=== PATIENT | male | born 1970 | race Caucasian/White ===

== ENCOUNTER 2019-05-07 22:53 | Emergency (ER) | payer BC ==
[~2019-05-07] VITALS: Ht 180.3 cm; Wt 100.0 kg
[2019-05-07 22:56] VITALS: BP 155/102
== END 2019-05-07 23:18 | disposition home or self-care (01) ==
LOC: ER 22:54
DX: Z04.1 Encounter for examination and observation following transport accident (principal); E78.00 Pure hypercholesterolemia, unspecified; K21.9 Gastro-esophageal reflux disease without esophagitis; F17.200 Nicotine dependence, unspecified, uncomplicated; V49.88XA Car occupant (driver) (passenger) injured in other specified transport accidents, initial encounter; Y93.89 Activity, other specified; Y92.413 State road as the place of occurrence of the external cause; Y99.9 Unspecified external cause status
CPT/HCPCS: 99283

== ENCOUNTER 2022-11-11 09:57 | Day surgery (SDC) | payer MEDICAID ==
[2022-11-05 15:22] LABS: BASOPHILS # (AUTO) 0.1 X10'3 (0-0.2); BASOPHILS % (AUTO) 1.1 % (0-1); EOSINOPHILS % (AUTO) 0.6 % (0-6); HEMATOCRIT 41.3 % (42.0-52.0); HEMOGLOBIN 13.9 g/dl (14.0-17.9); LYMPHOCYTES # (AUTO) 1.7 X10'3 (1.1-4.8); LYMPHOCYTES % (AUTO) 27.9 % (21-51); MEAN CORPUSCULAR HEMOGLOBIN 30.4 PG (27.0-31.0); MEAN CORPUSCULAR HGB CONC 33.6 g/dL (33.0-36.5); MEAN CORPUSCULAR VOLUME 90.4 FL (78-98); MEAN PLATELET VOLUME 7.3 FL (7.4-10.4); MONOCYTES # (AUTO) 0.5 X10'3 (0-0.9); MONOCYTES % (AUTO) 8.2 % (2-12); NEUTROPHILS # (AUTO) 3.7 X10'3 (1.8-7.7); NEUTROPHILS % (AUTO) 62.2 % (42-75); PLATELET COUNT 290 X10'3 (140-440); RED BLOOD COUNT 4.57 X10'6 (4.70-6.10); RED CELL DISTRIBUTION WIDTH 13.5 % (11.5-14.5)
[2022-11-05 15:39] LABS: ALANINE AMINOTRANSFERASE 27 U/L (12-78); ALBUMIN 4.1 G/DL (3.4-5.0); ALBUMIN/GLOBULIN RATIO 1.3 (1.1-1.5); ALKALINE PHOSPHATASE 43 IU/L (46-116); ANION GAP 11 (8-16); ASPARTATE AMINO TRANSFERASE 24 U/L (10-37); BILIRUBIN,TOTAL 0.5 MG/DL (0.1-1.0); BLOOD UREA NITROGEN 17 MG/DL (7-18); BUN/CREATININE RATIO 14.5 (10.0-20.0); CALCIUM 8.8 MG/DL (8.5-10.1); CHLORIDE 105 MMOL/L (99-107); CREATININE 1.17 MG/DL (0.60-1.10); GLUCOSE 100 MG/DL (70-104); POTASSIUM 4.1 MMOL/L (3.5-5.1); SODIUM 139 MMOL/L (135-145); TOTAL CARBON DIOXIDE 22.7 MMOL/L (24-32); TOTAL PROTEIN 7.2 G/DL (6.4-8.2); eGFR 65 ML/MIN
[~2022-11-11] VITALS: Ht 180.3 cm; Wt 96.5 kg
[2022-11-11] VITALS (12 sets, daily range): BP systolic 125–151; BP diastolic 79–105
[~2022-11-11 09:57] MED LIST: NO HOME MEDS; cefazolin 2gm/D5W 100mL 100 ML IV ONE; famotidine 20mg tablet PO ONE; ringers solution, lacted 1,000 ML IV SCH
[2022-11-11] MEDS ORDERED: LIDOcaine 1% 30ml preserv. free vial ONE (12:39)
[2022-11-11] MEDS ORDERED: BUPIVAcaine/PF 2.5 mg/ml (0.25%) 30ml vial ONE (12:40)
[2022-11-11] MEDS ORDERED: hydrALAZINE 20mg/ml inj. IV PRN (12:45)
[2022-11-11] MEDS ORDERED: labetalol 20mg/4ml (5mg/ml) syringe IV PRN (12:45)
[2022-11-11] MEDS ORDERED: ondansetron/PF 4mg/2ml inj IV PRN (12:45)
[2022-11-11] MEDS ORDERED: proCHLORperazine 10 MG/2 ml inj IV PRN (12:45)
[2022-11-11] MEDS ORDERED: meperidine/PF 25mg/ml syringe IV PRN ×3 (12:45)
[2022-11-11] MEDS ORDERED: morphine 4 MG/ML inj SYRINge IV PRN (12:45)
[2022-11-11] MEDS ORDERED: ringers solution, lacted 1,000 ML IV SCH (12:45)
[2022-11-11] MEDS ORDERED: morphine 2 MG/ML inj. syringe IV PRN (12:45)
[2022-11-11] MEDS ORDERED: acetaminophen 1,000mg/100ml IV 100 ML IV PRN (12:45)
[2022-11-11] MEDS ORDERED: ketorolac trometh. 30mg/ml inj. IV ONE (12:45)
[2022-11-11] MEDS ORDERED: sevoflurane 250ml liquid IH ONE (13:02)
[2022-11-11] MEDS ORDERED: midazolam 1 mg/ML 2ml injection ONE (13:06)
[2022-11-11] MEDS ORDERED: fentaNYL /PF 50mcg/ml 5ml ampule ONE (13:06)
[2022-11-11] MEDS ORDERED: dexamethasone sod phosphate 4mg/ml inj. ONE (13:20)
[2022-11-11] MEDS ORDERED: propofol inj 20 ML IV ONE (13:20)
[2022-11-11] MEDS ORDERED: rocuronium 10mg/ml inj IV ONE (13:20)
[2022-11-11] MEDS ORDERED: ondansetron/PF 4mg/2ml inj ONE (13:20)
[2022-11-11] MEDS ORDERED: LIDOcaine 2% (20mg/ml) 5ml vial ONE (13:20)
[2022-11-11] MEDS ORDERED: morphine 4 MG/ML inj SYRINge ONE (14:09)
[2022-11-11] MEDS ORDERED: neostigmine methylsulfate 1 MG/ML 10ml vial ONE (14:13)
[2022-11-11] MEDS ORDERED: glycopyrrolate 0.2mg/ml inj ONE (14:13)
--- NOTE | 2022-11-11 14:22 | NUR ---
Received from OR via [facility] IN STABLE CONDITION , accompanied by Anesthesiologist and [employer]ODU[employer] TEAM MEMBER report given by [employer] TEAM MEMBER AND Anesthesiolgist. Addendum: 11/11/22 at 1506 by Katalina Marie RN Amended: Links added.
[2022-11-11] MEDS ORDERED: HYDROcodone/acetaminophen 5mg/325mg tablet PO PRN (14:30)
--- NOTE | 2022-11-11 16:14 | NUR ---
PATIENT DISCHARGED FROM PACU IN STABLE CONDITION AFTER WRITTEN AND VERBAL DISCHARGE INSTRUCTIONS GIVEN. PATIENT GAVE VERBAL UNDERSTANDING OF INSTRUCTIONS GIVEN. PATIENT LEFT FACILITY VIA WHEELCHAIR WITH RN. Addendum: 11/11/22 at 1633 by Katalina Marie RN Amended: Links added.
== END 2022-11-11 16:14 | disposition home or self-care (01) ==
LOC: PAS 09:57
PROVIDERS: ATTEND Surgery
DX: K40.90 Unilateral inguinal hernia, without obstruction or gangrene, not specified as recurrent (principal); K21.9 Gastro-esophageal reflux disease without esophagitis; F17.210 Nicotine dependence, cigarettes, uncomplicated; F12.90 Cannabis use, unspecified, uncomplicated; Z79.899 Other long term (current) drug therapy
CPT/HCPCS: 36415; 49650; 71046; 80053; 82948; 85025; 93005; C1781; J0131; J0690; J1100; J1885; J2250; J2270; J2405; J2704; J2710; J3010; J3490; J7030; J7120; S2900; Z7506; Z7508; Z7512; A4215; A4618

== ENCOUNTER 2023-01-12 17:39 | Emergency (ER) | payer MEDICAID ==
[~2023-01-12] VITALS: Ht 180.3 cm; Wt 100.0 kg
[~2023-01-12 17:39] MED LIST changes: -cefazolin 2gm/D5W 100mL 100 ML IV ONE; -famotidine 20mg tablet PO ONE; -ringers solution, lacted 1,000 ML IV SCH
[2023-01-12 17:43] VITALS: BP 176/105
[2023-01-12] MEDS ORDERED: SULF1TAB49 PO (18:25)
[2023-01-12] MEDS ORDERED: sulfamethoxazole/trimethoprim DS (800/160mg) tablet PO ONE (18:30)
[2023-01-12] MEDS ORDERED: bacitracin 15gm ointment TP ONE (18:30)
== END 2023-01-12 18:31 | disposition home or self-care (01) ==
LOC: ER 17:40
DX: L23.7 Allergic contact dermatitis due to plants, except food (principal); E78.00 Pure hypercholesterolemia, unspecified; K21.9 Gastro-esophageal reflux disease without esophagitis
CPT/HCPCS: 99283

== ENCOUNTER 2023-02-28 15:51 | Emergency (ER) | payer MEDICAID ==
[~2023-02-28] VITALS: Ht 180.3 cm; Wt 81.4 kg
[2023-02-28 16:01] VITALS: BP 153/99; PULSE 103; RESP 16; TEMP 98.5; O2SAT 98
== END 2023-02-28 19:34 | disposition left against medical advice (07) ==
LOC: ER 15:52
DX: M79.674 Pain in right toe(s) (principal); Z53.21 Procedure and treatment not carried out due to patient leaving prior to being seen by health care provider
CPT/HCPCS: 99281

== ENCOUNTER 2023-03-02 05:52 | Emergency (ER) | payer MEDICAID ==
[~2023-03-02] VITALS: Ht 180.3 cm; Wt 90.0 kg
[2023-03-02 05:55] VITALS: BP 150/87; PULSE 100; RESP 18; TEMP 97.8; O2SAT 100
[2023-03-02] MEDS ORDERED: DOXYCYCLINE 100MG CAPSULE PO STA (07:56)
[2023-03-02] MEDS ORDERED: mupirocin 2% ointment 22GM TP STA (07:56)
[2023-03-02] MEDS ORDERED: clindamycin 150mg capsule PO ONE (08:00)
[2023-03-02] MEDS ORDERED: ibuprofen tablet 400 MG TABLET PO ONE (08:00)
[2023-03-02] MEDS ORDERED: CLIN300C3 PO (08:04)
[2023-03-02] MEDS ORDERED: IBUP-1984 PO (08:04)
[2023-03-02] MEDS ORDERED: DOXY-1 PO (08:04)
[2023-03-02] MEDS ORDERED: MUPI22OI30 TOP (08:04)
== END 2023-03-02 08:38 | disposition home or self-care (01) ==
LOC: ER 05:53
DX: L03.116 Cellulitis of left lower limb (principal); E78.00 Pure hypercholesterolemia, unspecified; K21.9 Gastro-esophageal reflux disease without esophagitis
CPT/HCPCS: 99284

== ENCOUNTER 2023-09-11 20:23 | Emergency (ER) | payer MEDICAID ==
[~2023-09-11] VITALS: Ht 180.3 cm; Wt 88.6 kg
[2023-09-11 20:44] VITALS: BP 128/77; PULSE 92; RESP 16; TEMP 97.3; O2SAT 99
[2023-09-11 21:48] LABS: ALANINE AMINOTRANSFERASE 24 U/L (12-78); ALBUMIN 3.5 G/DL (3.4-5.0); ALBUMIN/GLOBULIN RATIO 0.9 (1.1-1.5); ALKALINE PHOSPHATASE 49 IU/L (46-116); ANION GAP 7 (8-16); ASPARTATE AMINO TRANSFERASE 12 U/L (10-37); BILIRUBIN,TOTAL 0.2 MG/DL (0.1-1.0); BLOOD UREA NITROGEN 21 MG/DL (7-18); CALCIUM 8.2 MG/DL (8.5-10.1); CHLORIDE 104 MMOL/L (99-107); CREATININE 1.31 MG/DL (0.60-1.10); GLUCOSE 115 MG/DL (70-104); LIPASE 30 U/L (16-77); POTASSIUM 4.2 MMOL/L (3.5-5.1); SODIUM 139 MMOL/L (135-145); TOTAL CARBON DIOXIDE 27.7 MMOL/L (24-32); TOTAL PROTEIN 7.2 G/DL (6.4-8.2); eCRCL 69 ML/MIN; eGFR 57 ML/MIN
[2023-09-11 21:50] LABS: BASOPHILS # (AUTO) 0.1 X10'3 (0-0.2); BASOPHILS % (AUTO) 0.9 % (0-1); EOSINOPHILS # (AUTO) 0.1 X10'3 (0-0.9); EOSINOPHILS % (AUTO) 1.9 % (0-6); HEMATOCRIT 39.6 % (42.0-52.0); HEMOGLOBIN 13.5 g/dl (14.0-17.9); LYMPHOCYTES # (AUTO) 2.1 X10'3 (1.1-4.8); LYMPHOCYTES % (AUTO) 26.5 % (21-51); MEAN CORPUSCULAR HEMOGLOBIN 30.6 PG (27.0-31.0); MEAN PLATELET VOLUME 7.3 FL (7.4-10.4); MONOCYTES # (AUTO) 0.8 X10'3 (0-0.9); MONOCYTES % (AUTO) 9.4 % (2-12); NEUTROPHILS # (AUTO) 4.9 X10'3 (1.8-7.7); NEUTROPHILS % (AUTO) 61.3 % (42-75); PLATELET COUNT 372 X10'3 (140-440); RED CELL DISTRIBUTION WIDTH 13.8 % (11.5-14.5)
== END 2023-09-12 02:18 | disposition left against medical advice (07) ==
LOC: ER 20:24
DX: R10.9 Unspecified abdominal pain (principal); Z53.21 Procedure and treatment not carried out due to patient leaving prior to being seen by health care provider
CPT/HCPCS: 36415; 80053; 83690; 85025; 99281